=== PATIENT | female | born 1985 | race Caucasian/White ===

== ENCOUNTER 2016-07-14 17:22 | Emergency (ER) | payer SELFPAY ==
[~2016-07-14] VITALS: Ht 157.5 cm; Wt 63.5 kg
--- NOTE | 2016-07-14 17:53 | PHYS DOC ---
Adult General Chief Complaint Chief Complaint: SORE THROAT HPI HPI Patient is a 31-year-old female complaining of a sore throat for one day that is getting worse. It's hard to swallow due to pain. She has felt somewhat feverish and had chills. She had strep throat once before and thinks it might be that. She is in good general health. She has not taken anything today for pain. She did take some DayQuil. Review of Systems Review of Systems Constitutional: Subjective fever and chills HENT: As in history of present illness Respiratory: Denies cough or shortness of breath [] GI: Denies vomiting Current Medications Current Medications Current Medications Medications (Trade) Dose Ordered Sig/Simeon Start Time Stop Time Status Last Admin Dose Admin Acetaminophen/ Hydrocodone Bitart (Lortab 7.5-325/ 15ml Oral Solution) 15 ml 1X ONCE 07/14/16 18:00 07/14/16 18:01 07/14/16 17:44 15 ML Ibuprofen (Motrin) 800 mg 1X ONCE 07/14/16 18:00 07/14/16 18:01 07/14/16 17:43 800 MG Penicillin G Benzathine (Bicillin L-A) 1,200,000 unit 1X ONCE 07/14/16 18:00 07/14/16 18:01 07/14/16 17:43 1,200,000 UNIT Allergies Allergies Allergies Coded Allergies Type Severity Reaction Last Updated Verified No Known Drug Allergies 07/14/16 No Physical Exam Physical Exam Constitutional: Well developed, well nourished, appears to not feel well, her voice is thick, she is handling secretions well, swallowing with evident discomfort but is able to swallow HENT: Normocephalic, atraumatic, bilateral external ears normal, oropharynx moist, tonsils are swollen bilaterally with bright erythema and exudates. Uvula is midline. Tonsils are enlarged symmetrically bilaterally. Eyes: conjunctiva normal, no discharge. [] Neck: Normal range of motion, significant tender cervical adenopathy bilaterally Skin: Warm, dry, no erythema, no rash. [] Extremities: No tenderness, no cyanosis, no clubbing, ROM intact, no edema. [] Neurologic: Alert and oriented X 3, normal motor function, normal sensory function, no focal deficits noted. [] Current Patient Data Vital Signs Vital Signs Date Time Temp Pulse Resp B/P (MAP) Pulse Ox O2 Delivery O2 Flow Rate FiO2 07/14/16 17:44 20 95 EKG EKG [] Radiology/Procedures Radiology/Procedures [] Course & Med Decision Making Course & Med Decision Making Pertinent Labs and Imaging studies reviewed. (See chart for details) 31-year-old healthy female with 1 day of increasingly severe sore throat, she has red, enlarged tonsils with exudates and clinically appears to have strep throat. She does not appear to have a peritonsillar abscess at this time on clinical evaluation. I offered her a penicillin shot and she is agreeable to that. She was brought by mother who is driving. [] Dragon Disclaimer Dragon Disclaimer This chart was dictated in whole or in part using Voice Recognition software in a busy, high-work load, and often noisy Emergency Department environment. It may contain unintended and wholly unrecognized errors or omissions. Departure Departure: Impression: Primary Impression: Strep throat Disposition: 01 HOME, SELF-CARE Condition: STABLE Referrals: BARBARA HOPKINS (PCP) Patient Instructions: Strep Throat, [id number] Additional Instructions: Home to rest, ibuprofen for throat pain as we discussed, fluids, rest. If you start to get better and then one side of your throat is more sore and you get worse and have more trouble swallowing, that could be an abscess, return for recheck. RON HODGSON MD July 14, 2016 17:53
[2016-07-14] MEDS ORDERED: PENICILLIN G BENZATHINE LA 1,200,000 UNIT/2 ML DISP.SYRIN. IM ONE (18:00)
[2016-07-14] MEDS ORDERED: IBUPROFEN 100 MG/5 ML ORAL.SUSP. PO ONE (18:00)
[2016-07-14] MEDS ORDERED: HYDROcodon/APAP 7.5/325MG ORAL 15 ML SOLUTION PO ONE (18:00)
[2016-07-14 18:05] VITALS: BP 122/72
== END 2016-07-14 18:07 | disposition home or self-care (01) ==
LOC: ER 17:22
DX: J02.0 Streptococcal pharyngitis (principal)
CPT/HCPCS: 96372; 99283; J0561

== ENCOUNTER 2016-07-16 00:45 | Emergency (ER) | payer SELFPAY ==
[~2016-07-16] VITALS: Ht 157.5 cm; Wt 64.7 kg
[2016-07-16] MEDS ORDERED: DEXAMETHASONE SOD PHOS 10 MG/ML VIAL IM ONE (01:00)
[2016-07-16] MEDS ORDERED: PSEUDOEPHEDRINE 30 MG TABLET. PO ONE (01:00)
[2016-07-16] MEDS ORDERED: DEXAMETHASONE SOD PHOS 10 MG/ML VIAL ONE (01:12)
[2016-07-16] MEDS ORDERED: PSEUDOEPHEDRINE 30 MG TABLET. ONE (01:12)
[2016-07-16] MEDS ORDERED: HYDR-79 PO (01:19)
[2016-07-16] MEDS ORDERED: OXYM30SP NS (01:19)
[2016-07-16] MEDS ORDERED: PSEU120T9 PO (01:19)
--- NOTE | 2016-07-16 01:20 | PHYS DOC ---
Past History Past Medical History: No Pertinent History Past Surgical History: Tubal ligation Smoking: Cigarettes, Less than 1pk/day Alcohol Use: None Drug Use: None Adult General Chief Complaint Chief Complaint: SORE THROAT HPI HPI Is a pleasant 31-year-old otherwise healthy female who complains of sore throat began 3 days ago was actually seen in our department here 48 hours ago given IM penicillin and all medications go home her symptoms have not improved as much she was anticipating she is posterior back to work tonight and is not feeling opted based on her sore throat and continued nasal congestion. He denies any change in voice but she does have difficulty swallowing secondary to the pain she has had sick contacts with similar symptoms she denies travel outside the country denies fever or neck stiffness or headache. She does have some facial congestion described as clear mucus discharge from her nose without change in vision or altered mental status. Review of Systems Review of Systems Constitutional: Complaint of fevers and chills Eyes: Denies change in visual acuity, redness, or eye pain [] HENT: Complains of clear nasal congestion and sore throat Respiratory: Denies cough or shortness of breath [] Cardiovascular: No additional information not addressed in HPI [] GI: Denies abdominal pain, nausea, vomiting, bloody stools or diarrhea [] : Denies dysuria or hematuria [] Musculoskeletal: Denies back pain or joint pain [] Integument: Denies rash or skin lesions [] Neurologic: Complains of generalized body aches and headache without, focal weakness or sensory changes [] Endocrine: Denies polyuria or polydipsia [] Allergies Allergies Allergies Coded Allergies Type Severity Reaction Last Updated Verified No Known Drug Allergies 07/14/16 No Physical Exam Physical Exam Constitutional: Well developed, well nourished, patient is comfortable but in no acute distress and nontoxic in appearance. [] HENT: Normocephalic, oropharynx demonstrates erythema with +2 tonsillar hypertrophy exudates there even there is no evidence of peritonsillar abscess [] Eyes: PERRLA, EOMI, conjunctiva normal, no discharge. [] Neck: Normal range of motion, anterior lymphadenopathy noted Cardiovascular:Heart rate regular rhythm, no murmur [] Lungs & Thorax: Bilateral breath sounds clear to auscultation [] Skin: Warm, dry, no erythema, no rash. [] Neurologic: Alert and oriented X 3, normal motor function, normal sensory function, no focal deficits noted. [] EKG EKG [] Radiology/Procedures Radiology/Procedures [] Course & Med Decision Making Course & Med Decision Making Pertinent Labs and Imaging studies reviewed. (See chart for details) patient's vital signs reviewed with nursing staff nursing notes reviewed [] Patient is a pleasant 31-year-old female diagnosed with strep pharyngitis 2 days ago not given steroids but given here in the emergency department after evaluation feels that this will be improving her symptoms. Patient also noted to have facial pain with nasal congestion and nonpurulent nature without fevers altered mental status doubt bacterial sinusitis or cavernous venous thrombosis. At this time patient tolerating food and fluid orally will encouraged to continue oral hydration. Patient also encouraged to use Afrin and pseudoephedrine to help reduce nasal congestion. Impression: Pharyngitis, congestion, viral syndrome. Treatment plan Tylenol Motrin Sudafed and Afrin. Decadron and Bicillin have already been given Disposition: Follow-up with your primary care doctor next 24-48 hours if symptoms continue return for any increasing symptoms here next at this change in voice despite treatment. Dragon Disclaimer Dragon Disclaimer This chart was dictated in whole or in part using Voice Recognition software in a busy, high-work load, and often noisy Emergency Department environment. It may contain unintended and wholly unrecognized errors or omissions. Departure Departure: Impression: Primary Impression: Nasal congestion Additional Impression: Pharyngitis Disposition: 01 HOME, SELF-CARE Condition: IMPROVED Referrals: BARBARA HOPKINS (PCP) Patient Instructions: Viral and Bacterial Pharyngitis Additional Instructions: Return for any new or increasing symptoms or feel any questions or concerns. Please return for any fever prescription and 102.2 despite treatment if you have any change in voice, difficulty swallowing her oral medications or change in symptoms he would like us to evaluate. Scripts Hydrocodone/Ibuprofen (HYDROCODONE-IBUPROFEN 7.5-200 ) 1 Each Tablet 1 TAB PO PRN Q6HRS Y for PAIN, #10 TAB 0 Refills Prov: OSCAR HOLLOWAY MD 07/16/16 Oxymetazoline Hcl (AFRIN) 30 Ml Davis 30 ML NS TID for 2 Days, SPRAY Prov: OSCAR HOLLOWAY MD 07/16/16 Pseudoephedrine Hcl (SUDAFED 12-HOUR) 120 Mg Tablet.er 1 TAB PO BID, #20 TAB Prov: OSCAR HOLLOWAY MD 07/16/16 Problem Qualifiers OSCAR HOLLOWAY MD July 16, 2016 01:20
[2016-07-16 01:57] VITALS: BP 113/78
== END 2016-07-16 01:35 | disposition home or self-care (01) ==
LOC: ER 00:51
DX: B34.9 Viral infection, unspecified (principal); J02.9 Acute pharyngitis, unspecified; R09.81 Nasal congestion; F17.210 Nicotine dependence, cigarettes, uncomplicated
CPT/HCPCS: 96372; 99283; J1100